=== PATIENT | female | born 1950 | race Caucasian/White ===

== ENCOUNTER 2020-10-31 23:48 | Emergency (ER) | payer OTHER ==
[~2020-10-31] VITALS: Ht 165.1 cm; Wt 72.6 kg
[~2020-10-31 23:48] MED LIST: ISOMETHEPT-CAF1 EACH PO; LIPITOR 20 MG T20 M1 PO; MELATONIN3 MG PO; ZANTAC 150MG T150 M1 PO
[2020-11-01 01:25] LABS: URINE BILIRUBIN 2+ (Negative); URINE BLOOD 3+ (Negative); URINE CLARITY CLEAR; URINE COLOR YELLOW; URINE GLUCOSE-RANDOM* NEGATIVE (Negative); URINE KETONES 1+ (Negative); URINE LEUKOCYTES-REFLEX NEGATIVE (Negative); URINE NITRITE-REFLEX NEGATIVE (Negative); URINE PROTEIN (DIPSTICK) 2+ (Negative); URINE SPECIFIC GRAVITY >= 1.030 (1.005-1.035)
[2020-11-01 01:27] LABS: ABSOLUTE NEUTROPHILS 7.4 thou/uL (1.4-8.2); BASOPHILS 0.3 % (0.0-2.0); EOSINOPHILS 0.1 % (0.0-3.0); HEMATOCRIT 40.6 % (37.0-47.0); HEMOGLOBIN 13.4 gm/dL (12.0-15.0); LYMPHOCYTES 7.4 % (24.0-44.0); MCH 27.9 pg (26.0-34.0); MCHC 32.9 g/dL (28.0-37.0); MCV 84.8 fL (80.0-100.0); MONOCYTES 3.3 % (1.0-8.0); PLATELET COUNT 187 thou/uL (150-400); POLYS 88.9 % (36.0-66.0); RBC 4.78 mil/uL (4.20-5.00); RDW 13.9 % (10.5-14.5); WBC 8.3 thou/uL (4.0-11.0)
[2020-11-01 01:29] LABS: ICTOTEST (BILI CONFIRMATORY) Positive (Negative)
[2020-11-01 01:33] LABS: CALCIUM 8.7 mg/dL (8.5-10.1); CREATININE 1.3 mg/dL (0.6-1.0); POTASSIUM 3.9 mmol/L (3.5-5.1)
[2020-11-01 01:37] LABS: BACTERIA-REFLEX 1-9 Few /HPF (None Seen); COARSE GRANULAR CASTS 0-3 Few /LPF (None Seen); CRYSTALS None Seen /LPF (None Seen); FINE GRANULAR CASTS 0-3 Few /LPF (None Seen); MUCUS 0-3 Light strn/LPF (None Seen); SQUAMOUS None Seen /LPF (0-3); URINE RBC >20 Many /HPF (NONE SEEN); URINE WBC-REFLEX 0-5 Rare /HPF (0-5)
[2020-11-01 01:38] LABS: YEAST-REFLEX Present (None Seen)
[2020-11-01] MEDS ORDERED: NORCO5 PO (03:35)
[2020-11-01] MEDS ORDERED: ZOFRAN ODT4 MG PO (03:35)
[2020-11-01] MEDS ORDERED: FLOMAX0.4 MG PO (03:35)
[2020-11-01 03:53] VITALS: BP 93/53
== END 2020-11-01 04:03 | disposition home or self-care (01) ==
LOC: ER 23:48
PROVIDERS: Emergency Medicine
DX: N13.2 Hydronephrosis with renal and ureteral calculous obstruction (principal); R11.10 Vomiting, unspecified; G43.909 Migraine, unspecified, not intractable, without status migrainosus; E78.00 Pure hypercholesterolemia, unspecified; K21.9 Gastro-esophageal reflux disease without esophagitis; Z79.899 Other long term (current) drug therapy

== ENCOUNTER 2020-11-03 03:51 | Inpatient (IN) | payer OTHER ==
[~2020-11-03 03:51] MED LIST changes: +FLOMAX0.4 MG PO; +NORCO5 PO; +ZOFRAN ODT4 MG PO
[2020-11-03 10:20] LABS: CALCIUM 8.8 mg/dL (8.5-10.1); CREATININE 1.2 mg/dL (0.6-1.0); POTASSIUM 3.2 mmol/L (3.5-5.1)
[2020-11-03 10:21] LABS: ABSOLUTE NEUTROPHILS 9.1 thou/uL (1.4-8.2); BASOPHILS 0.2 % (0.0-2.0); EOSINOPHILS 0.3 % (0.0-3.0); HEMATOCRIT 34.7 % (37.0-47.0); HEMOGLOBIN 11.2 gm/dL (12.0-15.0); LYMPHOCYTES 11.8 % (24.0-44.0); MCH 27.3 pg (26.0-34.0); MCHC 32.3 g/dL (28.0-37.0); MCV 84.5 fL (80.0-100.0); MONOCYTES 10.8 % (1.0-8.0); PLATELET COUNT 143 thou/uL (150-400); POLYS 76.9 % (36.0-66.0); RDW 13.9 % (10.5-14.5); WBC 11.9 thou/uL (4.0-11.0)
[2020-11-03 10:22] LABS: MUCUS 0-3 Light strn/LPF (None Seen); SQUAMOUS 0-3 Few /LPF (0-3); URINE BILIRUBIN NEGATIVE (Negative); URINE BLOOD 3+ (Negative); URINE CLARITY CLEAR; URINE COLOR YELLOW; URINE GLUCOSE-RANDOM* NEGATIVE (Negative); URINE KETONES TRACE (Negative); URINE LEUKOCYTES NEGATIVE (Negative); URINE NITRITE NEGATIVE (Negative); URINE PROTEIN (DIPSTICK) NEGATIVE (Negative); URINE RBC 3-10 Few /HPF (NONE SEEN); URINE SPECIFIC GRAVITY <= 1.005 (1.005-1.035); URINE UROBILINOGEN 0.2 E.U./dl (0.2-1.0); URINE WBC 1-5 Rare /HPF (NONE SEEN)
[2020-11-03 10:23] LABS: BACTERIA 1-9 Few /HPF (None Seen); CASTS None Seen /LPF (None Seen); CRYSTALS None Seen /LPF (None Seen)
[2020-11-03] MEDS ORDERED: PERCOCET 5-3251 EACH PO (11:41)
--- NOTE | 2020-11-03 14:04 | NUR ---
Assumed pt care this am vs stable no pain noted. Pt stated she was informed by the MD that stone is not seen in x-ray. DC orders given, instructions and prescriptions given to the pt. Steady on her gait. IV removed, awaiting for family to pick pt up. Pt requested for lunch.
--- NOTE | 2020-11-03 14:44 | NUR ---
PT ADMITTED RELATED TO ABD ABSCESS. CM REVIEWED CHART AND SPOKE WITH CARE TEAM. CM MET WITH PT AT BEDSIDE THIS DAY. PT APPEARED TO BE A&O X4. CM ROLE INTRODUCED. PT INDICATED SHE LIVES ALONE IN A RANCH STYLE HOUSE WITH 1 STEP TO ENTER AND NO STEPS INSIDE. 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 PT INDICATED SHE WAS AWARE THAT SHE WILL BE DISCHARGE HOME THIS DAY AND HER SISTER WILL PICK HER UP TO TRANSPORT HOME. NO CM INTERVENTION INDICATED. CASE CLOSED.
== END 2020-11-03 14:40 | disposition home or self-care (01) | DRG 693 ==
LOC: 4W 03:51
PROVIDERS: ADMIT Internal Medicine; ATTEND Internal Medicine
DX: N20.0 Calculus of kidney (principal); J96.01 Acute respiratory failure with hypoxia; N39.0 Urinary tract infection, site not specified; E78.5 Hyperlipidemia, unspecified; G43.909 Migraine, unspecified, not intractable, without status migrainosus; G47.00 Insomnia, unspecified; K21.9 Gastro-esophageal reflux disease without esophagitis; F17.210 Nicotine dependence, cigarettes, uncomplicated; E78.00 Pure hypercholesterolemia, unspecified; Z79.899 Other long term (current) drug therapy
CPT/HCPCS: 10047

== ENCOUNTER 2020-11-09 10:34 | Inpatient (IN) | payer OTHER ==
[~2020-11-09] VITALS: Ht 162.6 cm; Wt 72.6 kg
[~2020-11-09 10:34] MED LIST changes: +PERCOCET 5-3251 EACH PO
[2020-11-09 10:45] VITALS: BP 105/62
[2020-11-09 11:32] LABS: ABSOLUTE NEUTROPHILS 4.7 thou/uL (1.4-8.2); BASOPHILS 0.7 % (0.0-2.0); EOSINOPHILS 1.8 % (0.0-3.0); HEMATOCRIT 38.2 % (37.0-47.0); HEMOGLOBIN 12.6 gm/dL (12.0-15.0); MCH 27.8 pg (26.0-34.0); MCV 84.2 fL (80.0-100.0); MONOCYTES 8.1 % (1.0-8.0); PLATELET COUNT 196 thou/uL (150-400); POLYS 74.4 % (36.0-66.0); RBC 4.54 mil/uL (4.20-5.00); WBC 6.4 thou/uL (4.0-11.0)
[2020-11-09 11:41] LABS: CALCIUM 8.1 mg/dL (8.5-10.1); CREATININE 1.6 mg/dL (0.6-1.0); POTASSIUM 3.3 mmol/L (3.5-5.1)
[2020-11-09 12:42] LABS: URINE BILIRUBIN NEGATIVE (Negative); URINE BLOOD 1+ (Negative); URINE CLARITY CLEAR; URINE COLOR YELLOW; URINE GLUCOSE-RANDOM* NEGATIVE (Negative); URINE KETONES NEGATIVE (Negative); URINE LEUKOCYTES-REFLEX NEGATIVE (Negative); URINE PROTEIN (DIPSTICK) NEGATIVE (Negative); URINE UROBILINOGEN 0.2 E.U./dl (0.2-1.0)
[2020-11-09 12:43] LABS: URINE NITRITE-REFLEX POSITIVE (Negative)
[2020-11-09 12:56] LABS: CASTS None Seen /LPF (None Seen); SQUAMOUS 0-3 Few /LPF (0-3)
[2020-11-09 12:57] LABS: BACTERIA-REFLEX None Seen /HPF (None Seen); CRYSTALS None Seen /LPF (None Seen); URINE RBC 1-2 Rare /HPF (NONE SEEN); URINE WBC-REFLEX 0-5 Rare /HPF (0-5)
[2020-11-09 13:19] VITALS: BP 111/65
--- NOTE | 2020-11-09 13:35 | NUR ---
ATTEMPTED TO CALL REPORT TO LAMBERTO WAS NOTIFIED HE WAS TALKING TO HIS CHARGE AND WOULD CALL ME BACK DOWN IN THE ER.
[2020-11-09 13:41] VITALS: BP 98/57
--- NOTE | 2020-11-09 14:06 | NUR ---
PT ORIENTED TO ROOM AND UNIT. BED LOW AND LOCKED, SIDE RAILS UXP3, CALL LIGHT IN REACH. WILL CONTINUE TO ASSESS.
[2020-11-09 17:00] VITALS: BP 99/52
[2020-11-09 20:01] VITALS: BP 94/51
--- NOTE | 2020-11-10 03:21 | NUR ---
Assumed pt care at 1900. A/OX4,VSS. Denies flank pain on assessment.C/o a headache indicated it wasn't migraines;medicated with Tylenol/Stephan, after some time pt called and stated she has a migraine headache and has pills with her in her purse. Pt informed she cannot keep pills in the room incase she self medicates herself as well as the nurse;informed medication will be taken to pharmacy until dc form the hospital. Karla WAREHOUSE PRODUCTION WORKER notified and wrote order for Fioricet Q4PRN,pt medicated with some relief reported. Pt has been NPO since midnight. IV leaking on RAC changed to LAC with one attempt. Resting quietly at this time,will continue to monitor pt.
[2020-11-10 06:00] LABS: CALCIUM 7.7 mg/dL (8.5-10.1); CREATININE 1.8 mg/dL (0.6-1.0); POTASSIUM 3.4 mmol/L (3.5-5.1)
[2020-11-10 06:01] LABS: ALBUMIN 2.6 g/dL (3.4-5.0); PHOSPHORUS 3.5 mg/dL (2.6-4.7)
[2020-11-10 07:30] VITALS: BP 101/61
--- NOTE | 2020-11-10 12:10 | NUR ---
PT ADMITTED RELATED TO LEFT KIDNEY STONE. CM REVIEWED CHART AND SPOKE WITH CARE TEAM. CM MET WITH PT AT BEDSIDE THIS DAY. PT IS FAMILIAR TO CM FROM PREVIOUS ADMISSION. PT HAD DISCHARGED 11/03. PT RESIDES IN A HOUSE ALONE WITH 1 STEP TO ENTER AND NO STEPS INSIDE. 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 PT INDICATED NO DME. PT INDICATED SHE PLANS TO RETURN HOME ONCE MEDICALLY STABLE. CARE TEAM INDICATED THAT PT HAS ELECTED SURGICAL INTERVENTION TO REMOVE STONE THIS DAY IT IS TO BE DONE AT 1600 THIS DAY. CM FOLLOWING REGARDING DC PLANNING.
[2020-11-10 16:22] VITALS: BP 105/61
[2020-11-10 19:45] VITALS: BP 107/56
--- NOTE | 2020-11-10 19:45 | NUR ---
Pt. assessed at 7:00 am. AxOx4 VSS no c/o pain. IV in left wrist running D5NS at 125ml/hr. She went down had a CT of pelvis w/o contrast. Results showed an increase in size of kidney stone. Surgeon disscused options with patients and both decided on surgery to put in a stint so stone could pass. Pt has been npo since yesterday at 17:00. Last BM 11/08/20. Tested for Andino virus. No skin issues or telemetry on her. Pt returned from surgery at 1850 started RL at 100ml/hr. Pt was not c/o pain. Bed in low position fallowing fall precautions. Call light within reach. Gave report to next shift.
[2020-11-10 21:19] VITALS: BP 107/60
[2020-11-11 00:46] VITALS: BP 103/54
--- NOTE | 2020-11-11 03:14 | NUR ---
Pt care assumed with pt in bed watching tv.Pt is a/o x4.Pt is up with standby assist to the bedside commode.pt had full liquids with no issues.Pt c/o and pain manage with norco.Pt vital signs wnl.Pt voiding with no blood but with uncomfort.Will continue to monitor
[2020-11-11 05:58] LABS: ALBUMIN 2.6 g/dL (3.4-5.0); CALCIUM 7.9 mg/dL (8.5-10.1); PHOSPHORUS 2.9 mg/dL (2.6-4.7)
[2020-11-11 06:03] LABS: CREATININE 0.8 mg/dL (0.6-1.0)
[2020-11-11 07:30] VITALS: BP 101/54
[2020-11-11 10:07] VITALS: BP 101/54
--- NOTE | 2020-11-11 11:12 | NUR ---
Assumed pt care this am, vs stable. No signs or verbalizations of distress noted. Stent with string still attached, urine filtered. Dc instructions (stent removal, schedule) given, IV removed. PT is now dc picked up by family.
--- NOTE | 2020-11-11 12:19 | NUR ---
CARE TEAM INDICATED THAT PT IS MEDICALLY STABLE TO DC HOME THIS DAY. PT TO DC HOME TO SELF CARE. PT'S SISTER TO PROVIDE TRANSPORT HOME THIS DAY. NO OTHER CM INTERVENTION INDICATED. CASE CLOSED.
--- NOTE | 2020-11-22 09:08 | PATH ---
[facility] [place] [address] PATHOLOGY RPT PROCEDURE Name: CHICA DAVIES Room #: 459-P [facility] [place] .R.#: [id number] Admission: 11/09/20 Date of : 54 Discharge: 11/11/20 Report #: [id number] Path Case #: [id number] [facility] Accession Number: [id number] . 01 Material submitted: . ureter - LEFT URETERAL STONE. Modifiers: left . 01 Clinical history: . CYSTO W/ URETEROSCOPY,STONE MANIPULATION LEFT KIDNEY STONE . 02 Diagnosis: Left Ureteral Stone: - Consistent with calculi. - The specimen is sent out for further processing. - Report pending outside analysis with results to follow in an addendum. [facility] 11/15/2020 0702 Local . 02 Addendum: . Outside report received from [facility], [address] [place] [address], [address], on case [id number], labeled with their number [id number], dated 11/21/2020. . Stone Analysis Report . Stone Composition Composition (percent) Calcium Oxalate Monohydrate 88 Calcium Oxalate Dihydrate 10 Calcium Phosphate Carbonate 2 TOTAL: 100 . . The stone is 8.0 x 3.5 x 2.5 mm in size. It is brown and juan in color and weighs approximately 50 milligrams. THE CALCULUS IS COMPOSED OF A MIXTURE OF CALCIUM OXALATE MONOHYDRATE (WHEWELLITE), CALCIUM OXALATE DIHYDRATE (WEDDELITE) AND CALCIUM PHOSPHATE CARBONATE (CARBONATE-APATITE). . LEFT URETERAL . . . Braulio Parisi MD Monomer Recovery Operator . . A complete copy of the report is on file. . [address] [address] PATHOLOGY RPT PROCEDURE Name: KEKECHICA S Room #: 459-P [facility] IN ..#: [id number] Admission: 11/09/20 Date of : 54 Discharge: 11/11/20 Report #: [id number] Path Case #: [id number] Technical and Professional services for the special studies performed by [facility], [address] [place] [address], [place] [address]. . (SWK:junior 11/21/2020) . AZJ/11/21/2020 Addendum Electronically Signed by Jasson Ortiz MD, Pathologist . 02 Electronically signed: . Jasson Ortiz MD, Pathologist NPI- [id number] . 01 Gross description: . Received fresh labeled "Davies, Chica and left ureteral stone". Received is a juan-brown calculi measuring 0.6 x 0.3 x 0.3 cm. The specimen is sent out for further processing. Report pending outside analysis with results to follow in an addendum.(J; 11/12/2020) . J/J 11/12/2020 1203 Local . 02 Pathologist provided ICD-10: N20.1 . 02 CPT . 384781 [facility]formed at: [facility] [address] [place] [id number] MD Lucien Elam MD Phone: [phone] Performed at: 02 [facility] [address] [place] [address] [id number] MD Jasson Ortiz MD Phone: [phone]
== END 2020-11-11 11:00 | disposition home or self-care (01) | DRG 659 ==
LOC: ER 10:34 → EROBS 13:17 → 4W 13:17
PROVIDERS: Nurse Practitioner; ADMIT Hospitalist; ATTEND Hospitalist
PROC: BT1F1ZZ Fluoroscopy of Left Kidney, Ureter and Bladder using Low Osmolar Contrast (ICD-10-PCS; principal; 2020-11-10)
PROC: 0TC78ZZ Extirpation of Matter from Left Ureter, Via Natural or Artificial Opening Endoscopic (ICD-10-PCS; principal; 2020-11-10)
PROC: 0T778DZ Dilation of Left Ureter with Intraluminal Device, Via Natural or Artificial Opening Endoscopic (ICD-10-PCS; principal; 2020-11-10)
DX: N13.2 Hydronephrosis with renal and ureteral calculous obstruction (principal); E43 Unspecified severe protein-calorie malnutrition; Z20.822 Contact with and (suspected) exposure to COVID-19; K21.9 Gastro-esophageal reflux disease without esophagitis; E78.00 Pure hypercholesterolemia, unspecified; G43.909 Migraine, unspecified, not intractable, without status migrainosus; F17.210 Nicotine dependence, cigarettes, uncomplicated; N17.9 Acute kidney failure, unspecified; Z79.899 Other long term (current) drug therapy; N17.0 Acute kidney failure with tubular necrosis
CPT/HCPCS: 10040; 50010; 50101; 50164; 50478; 51516; 51620; 56674; 56815; 57160; 58565; 58756; 62110; 62900; 70005